=== PATIENT | female | born 1980 | race Caucasian/White ===

== ENCOUNTER 2020-02-22 07:45 | Outpatient (CLI) | payer BC, OTHER ==
[2020-02-22 18:05] LABS: Hemoglobin 13.5 g/dL (12.0-16.0); Mean Corpuscular HGB CONC 34.3 g/dL (32.0-36.0); Mean Corpuscular Hemoglobin 30.8 pg (27.0-31.0); Mean Corpuscular Volume 89.9 fL (78.0-98.0); Mean Platelet Volume 7.6 fL (7.4-10.4); Platelet Count 319 thou/uL (130-400); RBC Distribution Width 11.1 % (11.5-14.5); Red Blood Cell (RBC) Count 4.36 mill/uL (4.20-5.40); White Blood Cell (WBC) Count 6.3 thou/uL (4.8-10.8)
[2020-02-22 18:25] LABS: BHCG - Serum Negative (NEGATIVE); Pregs Control Background? CLEAR/WHITE (CLR/WHITE); Pregs Control Bar Appear? YES (CONTROL BAR)
[2020-02-23 11:17] LABS: SARS-CoV-2 MS2 Positive; SARS-CoV-2 N Gene Negative; SARS-CoV-2 S Gene Negative; SARS-CoV-2 by NAA Not Detected (NotDetected); SARS-CoV-2 orf1ab Negative
== END 2020-02-22 07:46 | disposition home or self-care (01) ==
LOC: LABBT 07:45
PROVIDERS: ATTEND Student in an Organized Health Care Education/Training Program
DX: Z01.812 Encounter for preprocedural laboratory examination (principal); R10.9 Unspecified abdominal pain; R30.0 Dysuria; Z20.828 Contact with and (suspected) exposure to other viral communicable diseases
CPT/HCPCS: 84703; 85027; 87635; U0003

== ENCOUNTER 2020-02-27 05:59 | Day surgery (SDC) | payer BC ==
[2020-02-23 14:07] VITALS: BMI 28.4
[2020-02-27] MEDS ORDERED: CeleCOXIB 100 MG CAP ONE (06:22)
[2020-02-27] MEDS ORDERED: Gabapentin 300 MG CAP ONE (06:22)
[2020-02-27] MEDS ORDERED: Methylene Blue 50 MG/10 ML AMPUL ONE (06:50)
[2020-02-27] MEDS ORDERED: Bupivacaine HCl 0.5%/Epinephrine 1:200,000/PF 30 ml Vial ONE (06:50)
[2020-02-27] MEDS ORDERED: Midazolam HCl 2 mg/2 ml Vial ONE (06:56)
[2020-02-27] MEDS ORDERED: Famotidine 20 MG TAB ONE (06:57)
[2020-02-27] MEDS ORDERED: Scopolamine 1.5 mg/72 hour Patch ONE (06:57)
[2020-02-27] MEDS ORDERED: Famotidine/PF 20 mg/2ml Vial ONE (06:57)
[2020-02-27] MEDS ORDERED: SUGAMMADEX SODIUM 200 MG/2 ML VIAL ONE (06:58)
[2020-02-27] MEDS ORDERED: Fentanyl 250 MCG/5 ML VIAL ONE (06:58)
[2020-02-27] MEDS ORDERED: Fentanyl 100 MCG/2 ML VIAL ONE ×2 (10:32→11:04)
[2020-02-27] MEDS ORDERED: Ondansetron PF 4 MG/2 ML Vial ONE ×2 (10:36→13:53)
[2020-02-27] MEDS ORDERED: HYDROcodone/Acetaminophen 5/325 mg Tablet ONE ×2 (12:31→14:01)
[2020-02-27] MEDS ORDERED: PROPOFOL 200 MG/20 ML VIAL ONE (13:53)
[2020-02-27] MEDS ORDERED: Glycopyrrolate 0.2 MG/ML 5 ML SYRINGE ONE (13:53)
[2020-02-27] MEDS ORDERED: Dexamethasone 20 MG/5 ML VIAL ONE (13:53)
[2020-02-27] MEDS ORDERED: Lidocaine 1% PF 5 ML VIAL ONE (13:53)
[2020-02-27] MEDS ORDERED: Rocuronium Bromide 10 MG/ML (10ML VIAL) ONE (13:53)
--- NOTE | 2020-02-28 11:38 | OP ---
DATE OF PROCEDURE: 02/27/2020 PREOPERATIVE DIAGNOSES: 1. Pelvic pain. 2. Suspected endometriosis. 3. Cervical intraepithelial neoplasia. 4. History of ablation. POSTOPERATIVE DIAGNOSES: 1. Pelvic pain. 2. Suspected endometriosis. 3. Cervical intraepithelial neoplasia. 4. History of ablation. PROCEDURES PERFORMED: 1. Robotic assisted total laparoscopic hysterectomy. 2. Left salpingo-oophorectomy. 3. Right salpingectomy. 4. Cystoscopy. ANESTHESIA: General endotracheal. WATCH TECHNICIAN SURGEON: Marian Beltran PA-C ESTIMATED BLOOD LOSS: 20 mL. IVF: 1200 mL of crystalloid. URINE OUTPUT: 350 mL of clear urine. PATHOLOGY: Uterus, cervix, bilateral fallopian tubes, and left ovary. COMPLICATIONS: None. DRAINS: Black catheter. FINDINGS: A 9-cm uterus, normal appearing. Normal bilateral ovaries and fallopian tubes. Omental adhesions to the left adnexa, that were removed. There was a normal-appearing cervix. On cystoscopy, no bladder lesions or masses or lacerations. There was bilateral vigorous ureteral efflux. There was no Hunner's ulcers on hydrodistention of the bladder. The hydrodistention of the bladder was performed and remained for approximately 2 minutes. OPERATIVE INDICATIONS: The patient presented with chronic progressive pelvic pain, mainly in the left lower quadrant. The patient had a history of endometrial ablation, did not have menses following this, but in the last several years, had progressive pain that was debilitating. She had been on Orilissa for suspected endometriosis. She had failed other hormonal therapies, such as oral contraceptives. Orilissa did help to calm the pain down slightly. She also during preoperative workup had developed bladder pain despite multiple negative urine cultures. There was some suspicion for interstitial cystitis. Therefore, the cystoscopy was determined to be the most appropriate next step with hydrodistention of the bladder. The patient wished to proceed with planned surgery. DESCRIPTION OF PROCEDURE: The patient was taken to the operating room where general anesthesia was obtained without difficulty. The patient was prepped and draped in a sterile fashion in a dorsal lithotomy position. Black catheter was placed in the bladder. A speculum was placed in the vagina. The anterior lip of the cervix was grasped with a single-tooth tenaculum. The cervix was then progressively dilated with Jignesh dilators and the uterus sounded to 9 cm. The ROC manipulator was assembled with an 8-cm tip and a 4-cm colpotomizer ring. The manipulator was inserted into the uterus. The balloons were inflated. The speculum and tenaculum were removed out of the vagina. Legs were placed in low lithotomy. Attention was turned to the abdomen. 0.5% Marcaine with epinephrine was infiltrated into the umbilicus and a 12-mm skin incision was made in the umbilicus. The Veress needle was passed into the abdomen, noting an opening pressure of 4 mmHg. Pneumoperitoneum was obtained without difficulty. The 12-mm trocar and sleeve were advanced into the abdomen and confirmed placement with robotic camera. The steep Trendelenburg was obtained. Right and left lower quadrant 8-mm robotic trocars were placed under direct visualization after infiltrating with anesthetic. The right upper quadrant 11-mm clinic assistant port was also placed under direct visualization after infiltrating with anesthetic. The robot was then docked. The right robotic arm contained monopolar scissors. Left robotic arm contained a fenestrated bipolar. The surgeon console then took control. The omental adhesions to the left adnexa were filmy and these were able to be incised and cauterized with the scissors and removed. The left IP ligament was identified by elevating the fallopian tube and the ureter was noted medial crossing the pelvic brim to the IP. The IP ligament was clamped with the fenestrated and cauterized and then incised with the scissors. The mesovarium following this was then cauterized with the fenestrated and incised with the scissors down to the level of the round ligament, that was cauterized in the midportion and incised with the scissors. The posterior leaf of the broad ligament was then incised down to the level of the uterosacral ligament and the retroperitoneum was bluntly dissected off the uterine vessels and the ureter was identified laterally on the pelvic sidewall as they crossed underneath the uterine artery. The anterior leaf of the broad ligament was incised with the scissors down to the level of the bladder flap. There were some adhesions of the bladder flap to the lower uterine segment; however, the patient had not had a history of a previous . This peritoneum was layered out, undermining with fenestrated to ensure no bladder mucosa was contained in these adhesions and the bladder was able to be taken down below the level of the colpotomizer ring sharply with the scissors and using cautery as needed for bladder pillars. Attention was turned to the right side. The right fallopian tube was grasped and elevated. The mesosalpinx was sequentially cauterized and incised until the proximal portion was met and the fallopian tube was clamped across with fenestrated, cauterized and then incised with scissors and removed out of the abdomen. The utero-ovarian on the right side was cauterized with fenestrated and incised with the scissors down to the round ligament, that was cauterized in the midportion and incised. The posterior leaf of the broad ligament on the right side was then incised with the scissors on cautery at the level of the uterosacral ligament and the anterior leaf was also incised down to the level of the bladder flap. Skeletonization was performed in the bilateral uterine artery pedicles and ureters were again noted bilaterally in the pelvic sidewall. Once adequate skeletonization was performed, the uterine vessels were cauterized multiple times with the fenestrated just above the level of the internal cervical os. The scissors were then used to incise the vessels and the vessels were then dissected down with the scissors medially below the level of the colpotomizer ring to allow the pedicle to remain elevated out of the tissue. The pubocervical fascia was then scored with the scissors and blunt dissection of any adventitia was performed down where the anterior colpotomy would be. The colpotomy was then performed with the scissors circumferentially and the uterus was then able to be removed into the vagina. The vaginal cuff was then irrigated and hemostasis was achieved with the fenestrated. The scissors were traded out for the needle personal driver and the vaginal cuff was closed with a 2-0 barbed Stratafix suture in a running fashion and then run back for a second layer. There was some oozing of the right-sided pedicle, that was hemostatic with the fenestrated at the conclusion of the procedure. The needle was then cut and removed out of the abdomen and irrigation was then performed of the closed vaginal cuff and low pressure check was performed, noting excellent hemostasis. All instruments were removed out of the abdomen. Pneumoperitoneum was released. The robot was undocked. The fascia of the umbilical port was closed with a 0 Vicryl in a [id number] fashion. The skin was closed with 4-0 Monocryl in a subcuticular fashion. Dermabond was applied. The vaginal cuff was then checked and noted to be hemostatic vaginally and all instruments were removed out the vagina. The Black catheter was then removed out of the bladder. The 70-degree cystoscope was inserted into the bladder, noting the above findings with no lesions. The bladder was allowed to be distended adequately and then continued observation during the hydrodistention with the cystoscope inside the bladder was performed. There were no lacerations, no masses, and no abnormalities noted within the bladder and the ureters effluxed bilaterally. The cystoscope was then removed and the bladder was allowed to drain into the Black catheter and all instruments were removed out of the vagina. The patient tolerated the procedure well. Sponge, lap, and needle counts correct x2. The patient was taken to recovery room in stable condition. The patient received Ancef 2 g prior to the procedure. Job ID: [id number]
== END 2020-02-27 15:40 | disposition home or self-care (01) ==
LOC: SDC 05:59
PROVIDERS: ATTEND Student in an Organized Health Care Education/Training Program
PROC: 0UT74ZZ Resection of Bilateral Fallopian Tubes, Percutaneous Endoscopic Approach (ICD-10-PCS; principal; 2020-02-27)
PROC: 0UT14ZZ Resection of Left Ovary, Percutaneous Endoscopic Approach (ICD-10-PCS; principal; 2020-02-27)
PROC: 0TJB8ZZ Inspection of Bladder, Via Natural or Artificial Opening Endoscopic (ICD-10-PCS; principal; 2020-02-27)
PROC: 0UT94ZZ Resection of Uterus, Percutaneous Endoscopic Approach (ICD-10-PCS; principal; 2020-02-27)
DX: N87.1 Moderate cervical dysplasia (principal); N73.6 Female pelvic peritoneal adhesions (postinfective); N83.02 Follicular cyst of left ovary; G89.29 Other chronic pain; R10.2 Pelvic and perineal pain; R39.89 Other symptoms and signs involving the genitourinary system; R30.9 Painful micturition, unspecified; F32.9 Major depressive disorder, single episode, unspecified; F41.9 Anxiety disorder, unspecified; F90.9 Attention-deficit hyperactivity disorder, unspecified type; Z79.899 Other long term (current) drug therapy
CPT/HCPCS: 36415; 86850; 86900; 86901; 88307; J0690; J1100; J2250; J2405; J2704; J3010; Q9968; S0028

== ENCOUNTER 2020-03-18 09:34 | Emergency (ER) | payer BC ==
[2020-03-18] MEDS ORDERED: Iopamidol-370 76% 500 ML 1 ML ONE (09:47)
[2020-03-18] MEDS ORDERED: Fentanyl 100 MCG/2 ML VIAL ONE ×2 (10:19→11:59)
[2020-03-18] MEDS ORDERED: Ondansetron PF 4 MG/2 ML Vial ONE (10:19)
[2020-03-18 10:21] LABS: #Basophils 0.1 thou/uL (0.0-0.2); #Eosinphils 0.2 thou/uL (0.0-0.7); #Lymphocytes 1.6 thou/uL (1.20-3.40); #Monocytes 0.4 thou/uL (0.11-0.59); %Basophils 1.1 % (0.0-1.0); %Eosinophils 3.2 % (0.0-10.0); %Lymphocytes 25.8 % (21.0-51.0); %Monocytes 6.2 % (0.0-10.0); %Neutrophils 63.8 % (42.0-75.0); Hemoglobin 13.3 g/dL (12.0-16.0); Mean Corpuscular HGB CONC 34.9 g/dL (32.0-36.0); Mean Corpuscular Hemoglobin 30.9 pg (27.0-31.0); Mean Corpuscular Volume 88.6 fL (78.0-98.0); Mean Platelet Volume 6.9 fL (7.4-10.4); Platelet Count 332 thou/uL (130-400); RBC Distribution Width 10.9 % (11.5-14.5); Red Blood Cell (RBC) Count 4.32 mill/uL (4.20-5.40); White Blood Cell (WBC) Count 6.3 thou/uL (4.8-10.8)
[2020-03-18 10:32] LABS: PTT 30.4 sec (22.9-36.1); Prothrombin Time 13.3 sec (12.0-14.7)
[2020-03-18 10:35] LABS: BHCG - Serum Negative (NEGATIVE); Pregs Control Background? CLEAR/WHITE (CLR/WHITE); Pregs Control Bar Appear? YES (CONTROL BAR)
[2020-03-18 10:53] LABS: ALT (SGPT) 13 U/L (8-55); AST (SGOT) 15 U/L (5-34); Acetaminophen Less than 6.0 mcg/mL (10.0-30.0); Albumin 3.7 g/dL (3.5-5.0); Alcohol Less than 10 mg/dL (Less than 10); Alkaline Phosphatase 51 U/L (40-110); Anion Gap 11 mmol/L (10-20); BUN (Urea Nitrogen) 10 mg/dL (7.0-18.7); Bilirubin, Total 0.4 mg/dL (0.2-1.2); Calc. Creatinine Clearance 0 mL/min (70-130); Calcium 8.8 mg/dL (7.8-10.44); Carbon Dioxide 23 mmol/L (22-29); Chloride 110 mmol/L (98-107); Estimated GFR-MDRD 76; Glucose 80 mg/dL (70-105); Potassium 3.8 mmol/L (3.5-5.1); Protein, Total 6.7 g/dL (6.0-8.3); Salicylate Less than 8.0 mg/dL (15.0-30.0); Sodium 140 mmol/L (136-145)
[2020-03-18 11:09] LABS: Amphetamine Detected (NotDetected); Barbiturates Screen Not Detected (NotDetected); Benzodiazepine Screen Not Detected (NotDetected); Cocaine Metabolite Screen Not Detected (NotDetected); Medtox Control Line Valid? VALID (VALID); Medtox Reader # READER 4; Methadone Not Detected (NotDetected); Methamphetamine Not Detected (NotDetected); Opiate Screen Not Detected (NotDetected); Oxycodone Screen Not Detected (NotDetected); Phencyclidine (PCP) Not Detected (NotDetected); THC/Cannabinoid Screen Not Detected (NotDetected); Tricyclic Screen Not Detected (NotDetected)
[2020-03-18 13:02] LABS: Bilirubin Negative (Negative); Blood, Urine 3+ (Negative); Clarity Turbid (Clear); Glucose, Urine (Dipstick) Normal (Negative); Ketone, Urine Negative (Negative); Leukocyte 75 Leu/uL (Negative); Nitrite Negative (Negative); Protein, Urine (Dipstick) 30 mg/dL (Neg-Trace); RBC/HPF Greater than 50 HPF (0-3); Specific Gravity, Urine 1.019 (1.002-1.036); Squamous Epithelial 0-3 HPF (0-3); Urobilinogen Normal mg/dL (Less than 2); WBC/HPF 21-50 HPF (0-3)
[2020-03-18 13:03] LABS: Bacteria/HPF 1+ HPF (None Seen)
--- NOTE | 2020-03-18 13:09 | CT ---
CT ABDOMEN AND PELVIS PERFORMED WITH IV CONTRAST ENHANCEMENT: Date: 03/18/2020 HISTORY: Patient had a hysterectomy on 03/01/2020 related to cervical cancer. Bleeding started about a week ag o with spotting and now has become progressively heavy. Pain in lower abdomen and right side of abdom en. FINDINGS: The lung bases are clear of any infiltrative process. The liver, spleen, and pancreas regions appear unremarkable. Gallbladder appears to have been removed . Right and left adrenal glands, and right and left kidneys are normal in size. There is no significant periaortic or mesenteric lymphadenopathy. Patient has undergone a gastric bypass. There is some mild wall thickening to the distal esophagus which could be on the basis of some reflux. CT of pelvis was performed with contrast enhancement. The appendix is normal. There are multiple cyst s seen in what appears to be the right adnexa. Two of these measure approximately 3.0 and 3.4 cm with a third smaller cyst present. There is some free fluid noted, which is fairly minimal. Uterus has be en removed. A left ovary is not identified. No pelvic lymphadenopathy. IMPRESSION: 1. Multiloculated cystic structure which appears to be multiple cysts involving the right ovary. Ult rasound may be helpful in further evaluation. There is some minimal free fluid in the cul-de-sac lola on. 2. Normal appendix. 3. Post gastric bypass. Some distal esophageal wall thickening could be on the basis of reflux. POS: WAN
[2020-03-18] MEDS ORDERED: Ferric Subsulfate (ASTRINGYN) 8 GM VIAL ONE (15:18)
[2020-03-18] MEDS ORDERED: Silver Nitrate Application 1 EACH ONE ×2 (15:19→15:21)
[2020-03-18] MEDS ORDERED: Ferric Subsulfate (ASTRINGYN) 8 GM VIAL TOP SCH (15:45)
--- NOTE | 2020-03-18 16:50 | ULT ---
ULTRASOUND PELVIC LIMITED: History: Pelvic pain. Comparison: Reference made to a CT examination same day. FINDINGS: Real-time grayscale and color doppler evaluation of the pelvis was performed, Transabdominal approach only. The patient was unable to perform a transvaginal examination. The cystic structure in the righ t pelvis is unable to be visualized due to overlying bowel gas. Left adnexa is unremarkable. IMPRESSION: Limited exam as patient was unable to tolerate a transvaginal exam on today's pelvic ultrasound. Clos e follow up pelvic ultrasound when patient is able to tolerate a transvaginal approach versus a pelvi c MRI with and without contrast recommended. POS: HOME
--- NOTE | 2020-03-19 03:08 | CON ---
DATE OF CONSULTATION: 03/18/2020 HISTORY OF PRESENT ILLNESS: Patient is a 39-year-old female about three weeks out from a robotic-assisted total laparoscopic hysterectomy with left salpingo-oophorectomy and right salpingectomy. Patient presented to the emergency room with a 1-week history of spotting and progressive worsening bleeding over the last couple of days. Patient reports that she has also been feeling under the weather for the last week and physically just wiped out. In addition, she has been having pelvic pain. She denies fever. Denies cough, headache, chest pain, shortness of breath, or vomiting. Denies joint pain. She does report some lower back pain. Denies rash. Denies headache. PAST MEDICAL HISTORY: Negative. PAST SURGICAL HISTORY: She has had a cholecystectomy, gastric sleeve, prior x2, and a tubal ligation. PSYCHIATRIC HISTORY: Includes anxiety and depression. SOCIAL HISTORY: Denies drug, alcohol, or tobacco use. 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 MEDICATIONS: Patient reports that she discontinued her narcotics about three days ago. 1. Colace. 2. Adderall. 3. Topamax. 4. Prozac. 5. Wellbutrin. REVIEW OF SYSTEMS: Positive for constipation. PHYSICAL EXAMINATION: VITAL SIGNS: Blood pressure 124/96, pulse of 90, respiratory rate 18, and saturating 100% on room air. GENERAL: She appears to be in no acute distress. She is alert, oriented, cooperative, and pleasant to interact with. HEAD: Normocephalic and atraumatic. LUNGS: Clear to auscultation bilaterally. HEART: Regular rate and rhythm. ABDOMEN: Soft. GENITOURINARY: Vulva is without masses, lesions, or erythema. Vagina is moist. She has a small amount of bloody purulent-looking discharge. On inspection of the cuff, there is no apparent dehiscence, no active bleeding. Her cuff is very tender. On digital exam, it feels intact. Again, very tender. LABORATORY DATA: White count 6.3, hemoglobin 13.3, hematocrit 38.2, and platelets 332,000. Sodium 140, potassium 3.8, AST of 15, ALT of 13, creatinine of 0.83, and BUN of 10. Drug screen negative. CT scan shows a multiloculated cystic structure which appears to be a cyst involving the right ovary with minimal free-fluid in the cul-de-sac. Ultrasound shows left adnexal is unremarkable. ASSESSMENT AND PLAN: Patient is a 39-year-old female, who by history and physical exam appears to have a cuff cellulitis or a recent abscess that has since ruptured as the fluid does look purulent and bloody. This is coupled with amount of tenderness she has three weeks out from surgery. I have recommended the patient be discharged home with ciprofloxacin 500 mg twice a day for the next week and metronidazole 500 mg to be taken three times a day for the next week. Patient has been also counseled to follow up with her primary OB in two days. I have contacted her CARDIAC CATH LAB RADIOLOGY TECHNOLOGIST, Dr. Linda Jose, and we have given her update of the patient's status and disposition. Job ID: [id number]
== END 2020-03-18 20:05 | disposition home or self-care (01) ==
LOC: ERS 09:34
DX: N93.9 Abnormal uterine and vaginal bleeding, unspecified (principal); F32.9 Major depressive disorder, single episode, unspecified; F41.9 Anxiety disorder, unspecified; Z79.899 Other long term (current) drug therapy
CPT/HCPCS: 74177; 76857; 80053; 80306; 80307; 81003; 81015; 84703; 85025; 85610; 85730; 86850; 86900; 86901; 94760; 96374; 96375; 96376; J2405; J3010; Q9967